=== PATIENT | female | born 1965 | race Caucasian/White ===

== ENCOUNTER 2018-06-28 10:30 | Observation (INO) ==
[2018-06-28 10:54] LABS: Basophils # (auto) 0.03 K/uL (0-0.2); Basophils % (auto) 0.6 %; Eosinophils # (auto) 0.42 K/uL (0-0.5); Eosinophils % (auto) 8.2 %; Hematocrit (blood only) 40.6 % (37-47); Hemoglobin 13.3 g/dL (12.0-16.0); Immature Granulocytes # (auto) 0.01 K/uL (0.00-0.02); Immature Granulocytes % (auto) 0.2 %; Lymphocytes # (auto) 1.96 K/uL (1.2-3.4); Lymphocytes % (auto) 38.1 %; Mean Corpuscular Hgb Conc 32.8 g/dL (32-36); Mean Corpuscular Volume 87.7 fL (80-100); Mean Platelet Volume 10.3 fL (7.4-10.4); Monocytes # (auto) 0.47 K/uL (0.11-0.59); Monocytes % (auto) 9.1 %; Neutrophils # (auto) 2.25 K/uL (1.4-6.5); Neutrophils % (auto) 43.8 %; Platelet Count 321 K/uL (130-400); RDW Coefficient of Variation 15.3 % (11.5-14.5); RDW Standard Deviation 49.2 fL (36.4-46.3); Red Blood Count 4.63 M/uL (4.2-5.4); White Blood Count 5.14 K/uL (4.8-10.8)
[2018-06-28] MEDS ORDERED: MAGNESIUM SULFATE / D5W 1 GM/100 ML BAG IV ONE (11:01)
[2018-06-28] MEDS ORDERED: OPTIRAY 320 125ml IV PRN (11:01)
[2018-06-28 11:06] LABS: Partial Thromboplastin Ratio 0.9; Partial Thromboplastin Time 25.1 Seconds (21.0-31.0); Prothrombin Time 10.3 Seconds (9.0-12.0)
--- NOTE | 2018-06-28 11:07 | CT Scan Report ---
CT head/brain wo con CT DOSE: HISTORY: Mental status change Stroke evaluation TECHNIQUE: Multiaxial CT images of the head were performed without the use of intravenous contrast. A dose lowering technique was utilized adhering to the principles of ALARA. Comparison: None. Findings: Sclerosis right mastoid air cells The calvarium and skull base are intact. The ventricles a nd sulci are within normal limits. There is no mass, hematoma, midline shift, or acute infarct. Impression: No acute intracranial abnormality. Sclerosis right mastoid air cells The above report was generated using voice recognition software. It may contain grammatical, syntax or spelling errors. Electronically signed by: Ino Pardo M.D. 06/28/2018 10:55 AM
[2018-06-28 11:09] LABS: Alanine Aminotransferase 22 U/L (12-78); Albumin Level 4.1 gm/dl (3.4-5.0); Aspartate Aminotransferase 15 U/L (15-37); BUN Creatinine Ratio 20.7 (10-20); Blood Urea Nitrogen 19 mg/dl (7-18); Calcium 9.2 mg/dl (8.5-10.1); Carbon Dioxide 24 mmol/L (21-32); Chloride 110 mmol/L (98-107); Est GFR (African American) 82.9; Est GFR (Non-African American) 71.5; Glucose 97 mg/dl (70-99); Magnesium 2.1 mg/dl (1.8-2.4); Potassium 3.9 mmol/L (3.5-5.1); Sodium 142 mmol/L (136-145)
--- NOTE | 2018-06-28 11:11 | CT Scan Report ---
CT angio neck with con HISTORY: No other compromise Pt c/o rt sided facial droop TECHNIQUE: Multiaxial CT angiography of the neck was performed IV contrast: 100 cc nonionic con trast All measurements were calculated based on NASCET criteria. Maximum intensity projection image s were also obtained. A dose lowering technique was utilized adhering to the principles of ALARA. COMPARISON STUDY: None. FINDINGS: The aortic arch and proximal great vessels are widely patent. There is no significant sten osis, occlusion, or dissection identified within the bilateral common carotid, internal carotid, or v ertebral arteries. IMPRESSION: No significant stenosis, occlusion, or dissection identified within the carotid or vertebral arteries . The above report was generated using voice recognition software. It may contain grammatical, syntax or spelling errors. Electronically signed by: Ino Pardo M.D. 06/28/2018 11:09 AM
[2018-06-28 11:14] LABS: Albumin Globulin Ratio 1.2 (0.9-2); Alkaline Phosphatase 74 U/L (45-117); Bilirubin,Total 0.4 mg/dl (0.2-1); Creatine Kinase MB 1.2 ng/ml (0.5-3.6); Globulin 3.5 gm/dl (2.5-4.0); Total Protein 7.6 gm/dl (6.4-8.2); Troponin I < 0.015 ng/ml (0-0.045)
--- NOTE | 2018-06-28 11:14 | CT Scan Report ---
CT angio head w con HISTORY: No logic compromise. Pt c/o Rt sided facial drrop TECHNIQUE: Multiaxial CT angiography of the head was performed IV contrast: 100 cc Maximum i ntensity projection images were also obtained. A dose lowering technique was utilized adhering to th e principles of ALARA. COMPARISON: None. FINDINGS: There is no mass, hematoma, midline shift, or acute infarct. Visualized intracranial improvement intern al carotid arteries, distal vertebral arteries, and basilar artery are widely patent. There is no sig nificant stenosis, occlusion, or aneurysm seen within the bilateral ACAs, MCAs, or line manager. IMPRESSION: No significant stenosis, occlusion, or aneurysm within the [place]. Normal study The above report was generated using voice recognition software. It may contain grammatical, syntax or spelling errors. Electronically signed by: Ino Pardo M.D. 06/28/2018 11:13 AM
[2018-06-28] MEDS ORDERED: ALTEPLASE For Stroke IV STA (11:17)
[2018-06-28] MEDS ORDERED: RECOMBINANT IV STA (11:17)
[2018-06-28] MEDS ORDERED: ALTEPLASE IV STA (11:17)
[2018-06-28] MEDS ORDERED: SODIUM CHLORIDE 0.9% 1000ML 1,000 ML IV ONE (11:27)
[2018-06-28] MEDS ORDERED: ALTEPLASE, RECOMBINANT 62 MG in EMPTY BAG 0 ML IV ONE (11:30)
[2018-06-28] MEDS ORDERED: CLOPIDOGREL BISULFATE 75 MG TAB PO ONE (11:41)
[2018-06-28] MEDS ORDERED: ASPIRIN CHEW 324 MG PO STA ×2 (11:41→12:02)
[2018-06-28] MEDS ORDERED: CLOPIDOGREL BISULFATE 300 MG TAB PO STA (12:02)
[2018-06-28] MEDS ORDERED: PHARMACIST DISCHARGE MED REC CONSULT PRN (12:29)
[2018-06-28] MEDS ORDERED: LORazepam 1 MG/2 ML VIAL IV STA (12:33)
[2018-06-28] MEDS ORDERED: ACETAMINOPHEN 325 MG TAB PO PRN (12:35)
--- NOTE | 2018-06-28 13:25 | Magnetic Resonance Report ---
MR angio head wo con HISTORY: Mental status change Dissection protocol TECHNIQUE: 3-D [id number] MRA of the brain was performed without contrast. COMPARISON STUDY: None. FINDINGS: Visualized intracranial internal carotid arteries, distal vertebral arteries, and basilar a rtery are widely patent. There is no significant stenosis, occlusion, or aneurysm seen within the ese ateral ACAs, MCAs, or manager solution. IMPRESSION: No significant stenosis, occlusion, or aneurysm within the [place]. The above report was generated using voice recognition software. It may contain grammatical, syntax or spelling errors. Electronically signed by: Ino Pardo M.D. 06/28/2018 1:23 PM
[2018-06-28] MEDS ORDERED: GADOBUTROL 7.5ML VIAL IV PRN (14:01)
--- NOTE | 2018-06-28 14:08 | Magnetic Resonance Report ---
MR angio neck wo/w con HISTORY: Mental status change Pt c/o TECHNIQUE: Multiaxial MRI angiography of the neck was performed IV contrast: 7.5 cc Gadavist A ll measurements were calculated based on NASCET criteria. Maximum intensity projection images were a lso obtained. A dose lowering technique was utilized adhering to the principles of ALARA. COMPARISON STUDY: CT angiogram of the same date FINDINGS: The aortic arch and proximal great vessels are widely patent. There is no significant sten osis, occlusion, or dissection identified within the bilateral common carotid, internal carotid, or v ertebral arteries. IMPRESSION: No significant stenosis, occlusion, or dissection identified within the carotid or vertebral arteries . Normal study. The above report was generated using voice recognition software. It may contain grammatical, syntax or spelling errors. Electronically signed by: Ino Pardo M.D. 06/28/2018 2:06 PM
--- NOTE | 2018-06-28 14:15 | Magnetic Resonance Report ---
MR brain wo/w con CLINICAL HISTORY: Pt c/o RT sided visual field deficit, COMPARISON STUDY: No previous studies for comparison. TECHNIQUE: Utilizing a 1.5 Kylie magnet and dedicated coil, multiplanar, multiecho imaging of the br ain was performed pre and postcontrast administration. IV administration of 8.5 mL of Gadavist contr ast was uneventful. FINDINGS: Diffusion-weighted images are negative for an acute ischemic event. Signal characteristics of the cerebellar as well as cerebral hemispheres are unremarkable. Ventricula r system is midline. Coronal FLAIR images show a focus of increased signal adjacent to the anterior h orn left lateral ventricle. This may be secondary to a focus of chronic small vessel change versus at ypical presentation of a demyelinating disorder. Several very faint subcortical foci of increased sig nal are identified overlying the occipital regions. IMPRESSION: 1. Focal cortical focus of increased signal adjacent to the anterior horn left lateral ventricle. 2. This potentially is secondary to an old focus of chronic small vessel change versus an atypical pr esentation of demyelinating disorder 3. No evidence for an acute ischemic insult. 4. No abnormal postcontrast enhancement. The above report was generated using voice recognition software. It may contain grammatical, syntax or spelling errors. Electronically signed by: Ino Pardo M.D. 06/28/2018 2:14 PM
[2018-06-28] MEDS ORDERED: D5NSS + 20MEQ KCL 20 MEQ/1,000 ML BAG IV SCH (15:00)
--- NOTE | 2018-06-28 15:13 | History & Physical Report ---
Date of Service June 28, 2018 Assessment & Plan (1) Transient cerebral ischemia: 53 y/o F Hx hypothyroidism, migraine headaches, possible demyelinating lesion which was discovered incidentally following head trauma, elevated JUAN FRANCISCO of unknown significance. The pt developed acute onset of R facial numbness or a pins and needles sensation in addition to field deficits in her R eye which she states encompassed the medial filed of the R eye, and dizziness. She had a very mild, short-lived headache which occurred after the symptoms and states that it did not feel like a migraine. Her symptoms persisted as she presented to the ER for evaluation. She was evaluated by teleneurology for an acute CVA, however, her symptoms gradually improved and subjectively resolved. A CTA was negative for acute findings. This was followed by an MRI/MRI which also proved negative aside form a chronic lesion which she had informed us of previously. As we do not have an explanation for her acute symptoms, she is assigned to telemetry for possible TIA. It is noted that although she had felt her symptoms had fully resolved, there remained a field deficit affecting the medial lower quadrant of the R eye. The pt incidentally reports that she may have suffered a concussion the prior week by hitting her head on a mail box. She did not have significant symptoms in the immediate aftermath. She also reports recent treatment with progesterone for perimenopausal irregularities. 1) Acute neurological deficits with persistent visual field deficit R eye. She is placed on ASA and was also provided with Plavix in the ER. She is pending an echo and neurology consultation. A statin has been ordered HS. She should likely be seen by ophthalmology as well. 2) Hypothyroidism - cont Synthroid 3) Demyelinating lesion and elevated JUAN FRANCISCO - she had an exhaustive workup in the past with both rheumatology and neurology in [place]. Nothing came of this and it is not clear if this is related to her current issue. I will check an ESR. Full code - SCDs Total time for this admit including review of labs, meds, imaging, records - discussion with pt and ER attending - 40 min Present on Admission?: Yes History of Present Illness Chief Complaint: R visual deficit, R facial numbness Primary Care Provider: NO PCP 53 y/o F Hx hypothyroidism, migraine headaches, possible demyelinating lesion which was discovered incidentally following head trauma, elevated JUAN FRANCISCO of unknown significance. The pt developed acute onset of R facial numbness or a pins and needles sensation in addition to field deficits in her R eye which she states encompassed the medial filed of the R eye, and dizziness. She had a very mild, short-lived headache which occurred after the symptoms and states that it did not feel like a migraine. Her symptoms persisted as she presented to the ER for evaluation. She was evaluated by teleneurology for an acute CVA, however, her symptoms gradually improved and subjectively resolved. A CTA was negative for acute findings. This was followed by an MRI/MRI which also proved negative aside form a chronic lesion which she had informed us of previously. As we do not have an explanation for her acute symptoms, she is assigned to telemetry for possible TIA. It is noted that although she had felt her symptoms had fully resolved, there remained a field deficit affecting the medial lower quadrant of the R eye. The pt incidentally reports that she may have suffered a concussion the prior week by hitting her head on a mail box. She did not have significant symptoms in the immediate aftermath. She also reports recent treatment with progesterone for perimenopausal irregularities. 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 Family: Father due to CA of unknown primary Allergies Allergy/AdvReac Type Severity Reaction Status Date / Time morphine Allergy Chest Pain Unverified 06/28/18 12:15 Sulfa (Sulfonamide AdvReac Rash Unverified 06/28/18 12:15 Antibiotics) Home Medications Home Medications Medication Instructions Recorded Confirmed Type levothyroxine [Synthroid] 50 mcg PO DAILY 06/28/18 06/28/18 History Past Med/Surg History Medical History Concussion (Acute) Migraines (Acute) Demyelinating lesion (Chronic) Surgical History H/O partial thyroidectomy Social History Preferred Language: Fijian Communication Ability: Effective 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 Beliefs That Will Affect Care: None marital status: Current Living Situation: Spouse current occupational status: employed Other Information That Helps Us Care for You: No Feels Safe at Home: Yes Safety Concerns: Feels Safe At This Time Smoking Status: Never smoker Hx Alcohol Use: No Hx Substance Use: No Review of Systems Gen: Denies fevers, night sweats, rigors, fatigue, malaise, weight loss/gain ENT: Denies congestion, throat pain, hearing loss Eyes: Denies acute visual changes CV: Denies CP, palpitations Pulmonary: Denies SOB, cough, wheezing GI: Denies N/V, diarrhea, constipation Neuro: Dizziness, numbness of R face, visual field deficits R eye Musculoskeletal: Denies joint pain, inflammation Endocrine: Denies polydipsia, polyuria Skin: Denies acute rashes or ulcers Physical Exam Vital Signs (Past 24 Hours): Last Vital Signs Temp 36.6 C 06/28/18 14:00 Pulse 74 06/28/18 14:00 Resp 16 06/28/18 14:00 BP 123/76 06/28/18 14:00 Pulse Ox 100 06/28/18 14:00 Physical Exam: General: AAO x 3, no distress ENT: No erythema or exudates, no thrush Eyes: JULIEN, EOMI Head and neck: Normocephalic, atraumatic, No JVD, neck is supple. Chest/heart: Nontender, S1,2, RRR, no murmurs, no gallops Lungs: CTAB, no wheezing or crackles Abdomen: Nontender, nondistended, BS+ Neuro: AAO x 3, speech is clear, no unilateral weakness or loss of sensation, coordination intact - there is a visual field deficit involving the medial lower quadrant of the R eye only Musculoskeletal: No joint inflammation, muscle tenderness, FROM Skin: No acute rashes or ulcers Extremities: No clubbing, cyanosis, edema Results & Data Diagnostic Findings MRI brain: 1. Focal cortical focus of increased signal adjacent to the anterior horn left lateral ventricle. 2. This potentially is secondary to an old focus of chronic small vessel change versus an atypical presentation of demyelinating disorder 3. No evidence for an acute ischemic insult. 4. No abnormal postcontrast enhancement. CTA head, neck - MRA head, neck - no abnormalities seen (1) Transient cerebral ischemia Transient cerebral ischemia type: unspecified Qualified Code(s): G45.9 - Transient cerebral ischemic attack, unspecified
[2018-06-28] MEDS ORDERED: ATORVASTATIN 40 MG TAB PO SCH (21:00)
[2018-06-29 06:14] LABS: Basophils # (auto) 0.02 K/uL (0-0.2); Basophils % (auto) 0.3 %; Eosinophils # (auto) 0.35 K/uL (0-0.5); Hematocrit (blood only) 37.9 % (37-47); Hemoglobin 12.4 g/dL (12.0-16.0); Immature Granulocytes # (auto) 0.01 K/uL (0.00-0.02); Immature Granulocytes % (auto) 0.2 %; Lymphocytes # (auto) 2.19 K/uL (1.2-3.4); Lymphocytes % (auto) 37.4 %; Mean Corpuscular Hgb Conc 32.7 g/dL (32-36); Mean Corpuscular Volume 86.3 fL (80-100); Monocytes # (auto) 0.49 K/uL (0.11-0.59); Monocytes % (auto) 8.4 %; Neutrophils # (auto) 2.79 K/uL (1.4-6.5); Neutrophils % (auto) 47.7 %; Platelet Count 280 K/uL (130-400); RDW Coefficient of Variation 15.5 % (11.5-14.5); RDW Standard Deviation 49.1 fL (36.4-46.3); Red Blood Count 4.39 M/uL (4.2-5.4); White Blood Count 5.85 K/uL (4.8-10.8)
[2018-06-29] MEDS ORDERED: LEVOTHYROXINE SODIUM 50 MCG TABLET PO SCH (06:30)
[2018-06-29 06:33] LABS: BUN Creatinine Ratio 17.4 (10-20); Calcium 8.3 mg/dl (8.5-10.1); Creatinine Clr Calc Pharmacy 77.8 ml/min; Est GFR (African American) 87.5; Est GFR (Non-African American) 75.5; Potassium 4.1 mmol/L (3.5-5.1)
[2018-06-29 07:29] VITALS: TEMP 97.5
[2018-06-29 07:29] LABS: Estimated Average Glucose 114 mg/dl; Hemoglobin A1C 5.6 % (4.5-5.6)
[2018-06-29] MEDS ORDERED: ASPIRIN 81 MG ECTAB PO SCH (09:00)
--- NOTE | 2018-06-29 09:47 | Neurology Consultation ---
Date of Consultation June 29, 2018 Assessment & Plan (1) Complicated migraine: This patient presented with what sounds like a visual scotoma with associated facial paresthesias, and low-grade headache. She has had this constellation of symptoms in the past and has been told that she probably has complicated migraine. I suspect that her current presentation is consistent with this diagnosis. Her symptoms are resolved at this time. She was found to have a PFO which is likely incidental. However, I would recommend that she continue with daily low-dose aspirin given the possibility that her current episode could have been consistent with a TIA, although less likely. She does not require migraine prophylaxis at this time. However, she may follow-up with her neurologist back home to discuss this issue further if warranted. (2) Demyelinating lesion: Chronic focus of demyelination adjacent to the anterior horn of the left lateral ventricle. This abnormality has reportedly been present since its discovery in 2005. She has a few smaller foci of nonspecific signal change within the occipital regions as well. It is possible that this patient may have multiple sclerosis. However, she reports having an extensive evaluation previously including an assessment with an MS specialist in [place] who was unable to give a specific diagnosis. If she does have MS, it may be a nonprogressive or benign subtype, but may explain her intermittent right trigeminal paresthesias and nonspecific vision disturbances. In any event, there is no evidence that she is having an actual "relapse" at this time and I would not recommend further immediate testing for demyelinating disease. Again, this patient may follow-up with her usual neurologist for further evaluation going forward, if necessary. At this point, given this patient's clinical improvement and stability I do not have any further neurological recommendations. I will be happy to see her for follow-up in clinic locally although she is not from the area and will likely schedule something with her regular neurologist. Please contact me if I may be of further assistance. History of Present Illness Reason for Consultation: TIA? 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 She reports an episode of sudden onset vision change to the right eye which occurred yesterday afternoon while at [employer]. She recalls having difficulty reading from a prayer book and seeing the [place] up at the alter. She believes the vision difficulty affected primarily the right eye although she is not completely certain. She also complains of associated paresthesias affecting the right side of the face as well as mild dizziness and a low-grade headache. The symptoms significantly improved by the time she was evaluated in the emergency department yesterday. The patient does admit that she has had similar symptoms in the past including intermittent, nonspecific difficulty with her vision, primarily difficulty with focusing. She does not have a known history of optic neuritis. 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 The patient also relays a history of migraine, sometimes with aura, and sometimes with complicated features. Past medical history also notable for the discovery of a nonspecific focus of demyelination within the left cerebral hemisphere, adjacent to the left lateral ventricle, and 2006, after a minor concussion. The patient indicates that she was evaluated by an MS specialist in [place] around that time and recalls having additional neuro imaging including spinal MRI and even a lumbar puncture. She indicates that it was felt that she most likely did not have multiple sclerosis and recalls that her lumbar puncture was negative. She has followed periodically with a different neurologist, Dr. Wright, for her intermittent trigeminal neuropathy. Currently, the patient reports that her symptoms have completely resolved. She denies headache, vision disturbance, paresthesias, or weakness at this time. Family history patient denies a family history of multiple sclerosis in any immediate family member. Family history otherwise noncontributory. 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 Beliefs That Will Affect Care: None marital status: Current Living Situation: Spouse current occupational status: employed Other Information That Helps Us Care for You: No Feels Safe at Home: Yes Safety Concerns: Feels Safe At This Time Smoking Status: Never smoker Hx Alcohol Use: No Hx Substance Use: No Review of Systems Constitutional: no fever and no chills Eyes: as per Subjective / HPI Ear, Nose, Mouth, Throat: no tinnitus and no hearing loss Respiratory: no cough and no dyspnea Cardiovascular: no chest pain and no palpitations Gastrointestinal: no nausea and no vomiting Genitourinary (Female): no dysuria and no urinary incontinence Musculoskeletal: no neck pain and no myalgia Integumentary: no rash and no lesions Neurologic: as per Subjective / HPI Psychiatric: no depression and no anxiety Hematologic / Lymphatic: no easy bleeding and no easy bruising Physical Exam Vital Signs (Past 24 Hours): Last Vital Signs Temp 36.4 C L 06/29/18 07:28 Pulse 71 06/29/18 07:28 Resp 16 06/29/18 07:28 BP 110/75 06/29/18 07:28 Pulse Ox 98 06/29/18 07:28 Physical Exam: The patient is a well-developed, well-nourished middle-aged female. She is alert and fully oriented. Recent and remote memory intact. Attention and concentration normal. Patient exhibits a normal spontaneous speech pattern as well as an age-appropriate fund of knowledge. Visual casillas full to confrontation. Visual acuity normal. Pupils equal round react to light and accommodation. Eye movements normal. There is no nystagmus. Facial sensation intact bilaterally. There is no facial droop or weakness although with casual observation there is an intermittent mimetic facial on the right. Hearing intact bilaterally. Palate elevates to midline. Shoulder shrug intact. Tongue protrudes to midline. Deep tendon reflexes are intact and symmetrical for the arms and legs. Plantar responses downgoing bilaterally. There is no dysdiadochokinesia or dysmetria finger to nose or heel to cavazos bilaterally. Ophthalmoscopic examination reveals normal-appearing optic disks and posterior segments. No papilledema or hemorrhages. Carotid pulses normal bilaterally, no bruits to auscultation. Gait and station normal. Patient exhibits normal mu scle strength and tone for all 4 limbs. There is no atrophy. No abnormal movements observed. Results & Data Laboratory Results Today's labs reviewed. WBC 5.85, hemoglobin 12.4, platelet count 280, sodium 141, potassium 4.1, BUN 15, creatinine 0.87, glucose 96, calcium 8.3, triglycerides 82, cholesterol 203, HDL 63 A sedimentation rate drawn yesterday was 13. Diagnostic Findings A CT of the head completed yesterday was negative for hemorrhage or acute process. Images and report reviewed. CT angiography of the head and neck was unremarkable. No evidence for stenosis, occlusion, or other vascular abnormality. An MRI of the brain completed yesterday revealed an area of increased T2/FLAIR signal adjacent to the anterior horn of the left lateral ventricle, with an adjacent focus extending into the basal ganglia area. There is no evidence for acute or subacute infarct. No abnormal postcontrast enhancement. Also noted were several faint subcortical foci of increased signal within the occipital regions bilaterally. Images and report reviewed. MR angiography of the head and neck were unremarkable. An electrocardiogram revealed normal sinus rhythm, 70 bpm An echocardiogram revealed normal left ventricular systolic function. A PFO is suspected with injection of agitated saline.
[2018-06-29 11:20] VITALS: BP 118/73; O2SAT 97
[2018-06-29] MEDS ORDERED: STROKE PATIENT DISCHARGE STA (11:29)
[2018-06-29 13:03] VITALS: PULSE 56
--- NOTE | 2018-06-29 13:30 | Discharge Summary ---
Date of Service June 29, 2018 Admission HPI Per Admitting Provider 53 y/o F Hx hypothyroidism, migraine headaches, possible demyelinating lesion which was discovered incidentally following head trauma, elevated JUAN FRANCISCO of unknown significance. The pt developed acute onset of R facial numbness or a pins and needles sensation in addition to field deficits in her R eye which she states encompassed the medial filed of the R eye, and dizziness. She had a very mild, short-lived headache which occurred after the symptoms and states that it did not feel like a migraine. Her symptoms persisted as she presented to the ER for evaluation. She was evaluated by teleneurology for an acute CVA, however, her symptoms gradually improved and subjectively resolved. A CTA was negative for acute findings. This was followed by an MRI/MRI which also proved negative aside form a chronic lesion which she had informed us of previously. As we do not have an explanation for her acute symptoms, she is assigned to telemetry for possible TIA. It is noted that although she had felt her symptoms had fully resolved, there remained a field deficit affecting the medial lower quadrant of the R eye. The pt incidentally reports that she may have suffered a concussion the prior week by hitting her head on a mail box. She did not have significant symptoms in the immediate aftermath. She also reports recent treatment with progesterone for perimenopausal irregularities. 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 Family: Father due to CA of unknown primary Principal Diagnosis Likely complicated migraine Discharge Exam Constitutional WD/WN, vitals as above Eyes EOM intact bilaterally; no conjunctival abnormality ENMT external ear and nose normal, oropharynx normal Neck trachea midline, no thyromegaly normal visual inspection Respiratory normal respiratory effort, lungs clear to auscultation no respiratory distress Cardiovascular RRR, no murmur, no edema Gastrointestinal (Abdomen) Inspection/Auscultation: abdomen normal to inspection; abdomen not distended Musculoskeletal no cyanosis or clubbing, extremities motor strength 5/5 Skin no rashes, warm and dry Neurologic moves all extremities and awake Psychiatric Orientation: alert, oriented to person and cooperative Discharge Data Allergies Allergy/AdvReac Type Severity Reaction Status Date / Time morphine Allergy Chest Pain Unverified 06/28/18 12:15 Sulfa (Sulfonamide AdvReac Rash Unverified 06/28/18 12:15 Antibiotics) Consultations 06/28/18 12:04 ED Decision to Admit Stat 06/28/18 12:30 Consult Case Management - Discharge Planning Routine 06/28/18 14:55 Consult Neurology Routine 06/28/18 15:13 Consult Ophthalmology Routine Ordered Studies 06/28/18 10:43 CT head/brain wo con Stat 06/28/18 10:44 CT angio head w con Stat CT angio neck with con Stat 06/28/18 12:02 MR angio head wo con Stat MR brain wo/w con Stat 06/28/18 12:45 MR angio neck wo/w con Stat 06/29/18 08:29 MR brain wo con Routine Hospital Course (1) Complicated migraine: 1) Acute neurological deficits with persistent visual field deficit R eye - MRI brain showed known, chronic area of demyelination. MRAs were normal. Seen by neurology with thought this was likely complicated migraine vs. her undifferentiated demyelinating disease. She can continue her baby ASA per neurology, but no further work-up. Outpatient follow up. 2) Hypothyroidism - cont Synthroid 3) Demyelinating lesion and elevated JUAN FRANCISCO - she had an exhaustive workup in the past with both rheumatology and neurology in [place]. Follow up outpatient. Total Time Total Time Spent Total Time Spent (In Minutes): 30 Discharge Plan Discharge Items Patient Disposition: Home - Self-Care Reason For Visit: TIA Discharge Diagnosis: Complicated migraine vs. symptoms from undifferentiated demyelinating disease Discharge Goals: Diagnostic testing Activity: Resume your previous activity Non-emergency contact: Primary Care Provider and Neurologist Call non-emergency contact if: your symptoms worsen, your pain is not controlled and your temperature is above 100.5 Follow-up/Referrals: PCP,NO [Primary Care Provider] - Diet: Regular Addtl Provider Instructions: Brooke NewtonWindyHillaryyoly, You were admitted for visual changes and facial numbness. We were concerned about a stroke/TIA; however, your MRI and MRA all look good, apart from the one area of demyelination that you already know about and appears stable from prior studies. Dr. Thornton (neurology) saw you and feels this may be a complicated migraine vs. aspect of the undifferentiated demyelinating syndrome that you may have. Dr. Thornton did recommend you continue a daily baby aspirin in the small chance that this event was ischemic in nature. Please follow up with your normal neurologist in [place] for any further testing that he/she feels is warranted. Please return to the hospital if you have similar symptoms that don't resolve. Have a good day and a safe trip back to [place]! Prescriptions: Continued levothyroxine [Synthroid] 50 mcg tablet 50 mcg PO DAILY RF: 0 Stand-Alone Forms: [facility] Discharge Orders: Discharge Order (Routine); Ordered 06/29/18 Ordered By: Alen Grimm Admission Data Admit Date/Time: 06/28/18 12:44 Attending Provider: Alen Grimm Admit Provider: Travis Perkins Primary Care Provider: PCP,NO Other Providers: Justin Thornton ; Cruzito Hawkins ; Alen Grimm Service: Telemetry Other Interventions: Discharge Summary Assessment (RN) Last Done: 06/29/18 13:00
--- NOTE | 2018-06-30 19:45 | Emergency Department Note ---
Entered by Colleen Marroquin acting as a scribe for History of Present Illness General Chief complaint: Stroke Alert Stated complaint: R sided facial numbness Time Seen by Provider: 06/28/18 10:36 Source: patient History of Present Illness Onset (ago): hour(s) (this morning) Location: head Pain Consistency: + other (episode) Quality: + other (right-sided weakness) Associated symptoms: + other (double vision, vertigo, dizziness) The patient is a 53 year old female who presents to the Emergency Room with complaints of an episode of right-sided weakness that started around 0900 this morning. The patient reports that she was in [place] and that 10 minutes in she noticed that she had right-sided visual defects that resembled a blind spot. She states she noticed slight double vision. She notes she then experienced extreme dizziness and vertigo. The patient reports that she has a history of demyelinated lesions that were found incidentally on a CT scan several years ago. She states that the lesions are static and were unchanged in a 2017 MRI completed due to a severe concussion. She reports that she has a history of occasional migraines but has not had one in some time. She notes that she would sometimes notice a similar blind spot prior to these episodes but states that this is not normal for her. The patient reports that she had a cinda thyroidectomy 1.5 years ago and has hyperthyroidism as a result. She states that she just finished a course of progesterone to treat her hyperthyroidism. She notes that she has static paresthesia that is worsening slightly and that she has a strange feeling on the back of her tongue. Home Medications Home Medications Medication Instructions Recorded Confirmed Type levothyroxine [Synthroid] 50 mcg PO DAILY 06/28/18 06/28/18 History Allergies Allergy/AdvReac Type Severity Reaction Status Date / Time morphine Allergy Chest Pain Unverified 06/28/18 12:15 Sulfa (Sulfonamide AdvReac Rash Unverified 06/28/18 12:15 Antibiotics) Past Med/Surg History Medical History Concussion (Acute) Migraines (Acute) Demyelinating lesion (Chronic) Surgical History H/O partial thyroidectomy Social History Preferred Language: Bengali Beliefs That Will Affect Care: None marital status: Current Living Situation: Spouse current occupational status: employed Other Information That Helps Us Care for You: No Feels Safe at Home: Yes Safety Concerns: Feels Safe At This Time Smoking Status: Never smoker Hx Alcohol Use: No Hx Substance Use: No Review of Systems See HPI for pertinent positives & negatives. and A total of 10 systems reviewed and were otherwise negative Physical Exam Vital Signs Vital Signs - 24 hr 06/28/18 10:36 06/28/18 10:38 06/28/18 10:40 Temperature Temperature Source Sepsis Recent Fever Within 48 Hours Sepsis New/Unexplained Change in Mental Status Sepsis Action Taken by Nursing Pulse Rate 85 75 85 Pulse Rate from SpO2 Sensor 77 Respiratory Rate 20 19 Respiratory Effort / Characteristics Respiratory Depth Respiratory Pattern Blood Pressure 139/71 Blood Pressure Mean 93 Blood Pressure Position Pulse Oximetry 98 Oxygen Delivery Method 06/28/18 10:45 06/28/18 10:58 06/28/18 10:59 Temperature 97.7 F Temperature Source Oral Sepsis Recent Fever Within 48 Hours No Sepsis New/Unexplained Change in Mental Status No Sepsis Action Taken by Nursing No Action Required Pulse Rate 73 79 Pulse Rate from SpO2 Sensor Respiratory Rate 17 Respiratory Effort / Characteristics Non-Labored Respiratory Depth Normal Respiratory Pattern Regular Blood Pressure 131/60 131/60 Blood Pressure Mean 83 83 Blood Pressure Position Sitting Pulse Oximetry 96 Oxygen Delivery Method Room Air 06/28/18 11:00 06/28/18 11:01 06/28/18 11:10 Temperature Temperature Source Sepsis Recent Fever Within 48 Hours Sepsis New/Unexplained Change in Mental Status Sepsis Action Taken by Nursing Pulse Rate 76 75 70 Pulse Rate from SpO2 Sensor 77 76 72 Respiratory Rate 13 17 12 Respiratory Effort / Characteristics Respiratory Depth Respiratory Pattern Blood Pressure 125/79 Blood Pressure Mean 94 Blood Pressure Position Pulse Oximetry 100 98 99 Oxygen Delivery Method 06/28/18 11:16 06/28/18 11:20 06/28/18 11:30 Temperature Temperature Source Sepsis Recent Fever Within 48 Hours Sepsis New/Unexplained Change in Mental Status Sepsis Action Taken by Nursing Pulse Rate 73 87 74 Pulse Rate from SpO2 Sensor 73 87 74 Respiratory Rate 15 14 19 Respiratory Effort / Characteristics Respiratory Depth Respiratory Pattern Blood Pressure 142/83 H Blood Pressure Mean 102 Blood Pressure Position Pulse Oximetry 96 98 97 Oxygen Delivery Method 06/28/18 11:31 06/28/18 11:40 06/28/18 11:46 Temperature Temperature Source Sepsis Recent Fever Within 48 Hours Sepsis New/Unexplained Change in Mental Status Sepsis Action Taken by Nursing Pulse Rate 80 77 69 Pulse Rate from SpO2 Sensor 79 76 64 Respiratory Rate 13 17 Respiratory Effort / Characteristics Respiratory Depth Respiratory Pattern Blood Pressure 138/89 139/82 Blood Pressure Mean 105 101 Blood Pressure Position Pulse Oximetry 99 95 98 Oxygen Delivery Method 06/28/18 11:50 06/28/18 11:51 06/28/18 12:00 Temperature Temperature Source Sepsis Recent Fever Within 48 Hours Sepsis New/Unexplained Change in Mental Status Sepsis Action Taken by Nursing Pulse Rate 69 83 72 Pulse Rate from SpO2 Sensor 79 76 Respiratory Rate 16 16 20 Respiratory Effort / Characteristics Respiratory Depth Respiratory Pattern Blood Pressure 139/82 Blood Pressure Mean 101 Blood Pressure Position Pulse Oximetry 92 97 Oxygen Delivery Method 06/28/18 12:01 06/28/18 12:10 06/28/18 12:20 Temperature Temperature Source Sepsis Recent Fever Within 48 Hours Sepsis New/Unexplained Change in Mental Status Sepsis Action Taken by Nursing Pulse Rate 83 80 59 L Pulse Rate from SpO2 Sensor 83 77 56 L Respiratory Rate 13 16 Respiratory Effort / Characteristics Respiratory Depth Respiratory Pattern Blood Pressure 142/75 H Blood Pressure Mean 97 Blood Pressure Position Pulse Oximetry 99 100 Oxygen Delivery Method 06/28/18 12:30 06/28/18 12:31 06/28/18 13:23 Temperature Temperature Source Sepsis Recent Fever Within 48 Hours Sepsis New/Unexplained Change in Mental Status Sepsis Action Taken by Nursing Pulse Rate 54 L 54 L Pulse Rate from SpO2 Sensor 53 L Respiratory Rate 15 10 L Respiratory Effort / Characteristics Respiratory Depth Respiratory Pattern Blood Pressure 141/80 H Blood Pressure Mean 100 Blood Pressure Position Pulse Oximetry 98 Oxygen Delivery Method Room Air GENERAL: Patient is a healthy-appearing well-nourished HEAD: Normocephalic atraumatic EYES: Ocular movements intact pupils equal and react to light OROPHARYNX mucous membranes are moist no exudates present no erythema or edema present NECK: Supple no nuchal rigidity CHEST: Good equal expansion LUNGS: Clear and equal to auscultation CARDIAC: Normal S1 and S2 ABDOMEN: Soft nontender no guarding BACK: No CVA tenderness EXTREMITIES: No pain upon palpation normal muscle strength in all groups no clubbing cyanosis or edema NEURO: Patient is following commands is answering questions appropriately. Alert and oriented x3 Cranial Nerves 2-12 grossly intact. Slight right-sided facial droop. Course 1038: The patient was evaluated in room C4, and a complete history and physical examination were performed. 1040: The patient was moved to A01 for a stroke evalution. 1111: I discussed the patient's case with Dr. Shaikh [facility] [place] [facility], who recommended possible treatment and will evaluate the patient further. 1203: I updated the patient on her current lab and imaging results. 1224: I discussed the patient's case with Dr. Church [facility] [place], who will evaluate the patient for further evaluation and management. 1230: I discussed today's findings with the patient. She verbalized agreement of the treatment plan. She will be evaluated for further management and care. Consultations Consultation #1: I discussed the patient's case with Dr. Shaikh [facility] [place] [facility], who recommended possible treatment and will evaluate the patient further. Time: 11:11 Consultation #2: I discussed the patient's case with Dr. Perkins [facility] [place], who will evaluate the patient for further evaluation and management. Time: 12:24 Administered Medications Discontinued Medications Alteplase, Recombinant (Activase For Stroke) 1 ea IV NOW STA; Protocol Stop: 06/28/18 11:18 Last Admin: 06/28/18 15:58 Dose: Not Given Documented by: [id number] Aspirin (Aspirin) 324 mg PO NOW STA Stop: 06/28/18 11:42 Last Admin: 06/28/18 11:51 Dose: Not Given Documented by: [id number] Aspirin (Aspirin) 81 mg PO NOW STA Stop: 06/28/18 12:03 Last Admin: 06/28/18 12:09 Dose: 81 mg Documented by: [id number] Aspirin (Ecotrin Ectab) 81 mg PO [facility] Stop: 07/29/18 08:59 Last Admin: 06/29/18 10:20 Dose: 81 mg Documented by: [id number] Atorvastatin Calcium (Lipitor) 40 mg PO [facility] Stop: 07/28/18 20:59 Last Admin: 06/28/18 19:35 Dose: 40 mg Documented by: [id number] Clopidogrel Bisulfate (Plavix) 75 mg PO NOW ONE Stop: 06/28/18 11:42 Last Admin: 06/28/18 11:51 Dose: Not Given Documented by: [id number] Clopidogrel Bisulfate (Plavix) 300 mg PO NOW STA Stop: 06/28/18 12:03 Last Admin: 06/28/18 12:09 Dose: 300 mg Documented by: [id number] Gadobutrol (Gadavist 7.5ml) 7.5 ml IV ONCE PRN PRN Reason: Interaction Checking Stop: 07/02/18 14:00 Last Admin: 06/28/18 14:01 Dose: 7.5 ml Documented by: [id number] Magnesium Sulfate/Dextrose (Magnesium Sulfate / D5w) 1 gm in 100 mls @ 100 mls/hr IV ONE ONE Stop: 06/28/18 12:00 Last Infusion: 06/28/18 13:01 Dose: 0 mls/hr Documented by: [id number] Admin: 06/28/18 11:18 Dose: 100 mls/hr Documented by: [id number] Alteplase, Recombinant 62 mg/ (EMPTY BAG) 62 mls @ 62 mls/hr IV 1130 ONE Stop: 06/28/18 12:29 Last Admin: 06/28/18 15:40 Dose: Not Given Documented by: [id number] Alteplase, Recombinant 7 mg/ (Syringe) 7 mls @ 7 mls/min IV ONCE STA Stop: 06/28/18 11:18 Last Admin: 06/28/18 15:40 Dose: Not Given Documented by: [id number] Sodium Chloride (Nss 1000ml) 1,000 mls @ 999 mls/hr IV .Q1H1M ONE Stop: 06/28/18 12:27 Last Infusion: 06/28/18 12:15 Dose: 0 mls/hr Documented by: [id number] Admin: 06/28/18 11:37 Dose: 999 mls/hr Documented by: [id number] Lorazepam (Ativan) 1 mg in 2 mls @ 2 mls/min IV NOW STA Stop: 06/28/18 12:34 Last Admin: 06/28/18 12:42 Dose: 1 mls/min Documented by: [id number] Potassium Chloride/Dextrose/Sod Cl (D5nss + 20meq Kcl) 20 meq in 1,000 mls @ 80 mls/hr IV .[id number] BEST Stop: 06/29/18 03:29 Last Infusion: 06/29/18 04:13 Dose: 0 mls/hr Documented by: [id number] Admin: 06/28/18 15:43 Dose: 80 mls/hr Documented by: [id number] Ioversol (Optiray 320 125ml) 118 ml IV ONCE PRN PRN Reason: Interaction Checking Stop: 07/02/18 11:00 Last Admin: 06/28/18 11:02 Dose: 118 ml Documented by: [id number] Levothyroxine Sodium (Synthroid) 50 mcg PO DAILYBB BEST Stop: 07/29/18 06:29 Last Admin: 06/29/18 06:00 Dose: 50 mcg Documented by: [id number] Miscellaneous Information (Discharge, Stroke Patient) 1 ea N/A NOW STA Stop: 06/29/18 11:30 Last Admin: 06/29/18 13:28 Dose: Not Given Documented by: [id number] Medical Decision Making Differential Diagnosis Differential diagnosis: Etiologies such as metabolic, infection, hypo/hyperglycemia, electrolyte abnormalities, cardiac sources, intracerebral event, toxicologic, neurologic, as well as others were entertained. Medical Records Attestation: I reviewed the patient's medical records. Home Medications Current Medication List: was personally reviewed by me Laboratory Data Attestation: I reviewed the patient's lab results. Result diagrams: 06/29/18 05:56 06/29/18 05:56 Lab Results 06/28/18 06/28/18 06/28/18 Range/Units 10:30 10:30 10:30 WBC 5.14 (4.8-10.8) K/uL RBC 4.63 (4.2-5.4) M/uL Hgb 13.3 (12.0-16.0) g/dL Hct 40.6 (37-47) % MCV 87.7 (80-100) fL MCH 28.7 (25-34) pg MCHC 32.8 (32-36) g/dL RDW Std Deviation 49.2 H (36.4-46.3) fL RDW Coeff of Magui 15.3 H (11.5-14.5) % Plt Count 321 (130-400) K/uL MPV 10.3 (7.4-10.4) fL Immature Gran % (Auto) 0.2 % Neut % (Auto) 43.8 % Lymph % (Auto) 38.1 % Antelope % (Auto) 9.1 % Eos % (Auto) 8.2 % Baso % (Auto) 0.6 % Immature Gran # (Auto) 0.01 (0.00-0.02) K/uL Neut # (Auto) 2.25 (1.4-6.5) K/uL Lymph # (Auto) 1.96 (1.2-3.4) K/uL Antelope # (Auto) 0.47 (0.11-0.59) K/uL Eos # (Auto) 0.42 (0-0.5) K/uL Baso # (Auto) 0.03 (0-0.2) K/uL ESR (0-21) mm/hr PT 10.3 (9.0-12.0) Seconds INR 1.0 (0.9-1.1) APTT 25.1 (21.0-31.0) Seconds PTT Ratio 0.9 Sodium 142 (136-145) mmol/L Potassium 3.9 (3.5-5.1) mmol/L Chloride 110 H (98-107) mmol/L Carbon Dioxide 24 (21-32) mmol/L Anion Gap 8.0 (3-11) BUN 19 H (7-18) mg/dl Creatinine 0.91 (0.6-1.2) mg/dl Est Cr Clr Drug Dosing Not Reportable Est GFR ( Amer) 82.9 Est GFR (Non-Af Amer) 71.5 BUN/Creatinine Ratio 20.7 H (10-20) Glucose 97 (70-99) mg/dl POC Glucose (70-99) Estimat Average Glucose mg/dl Hemoglobin A1c (4.5-5.6) % Calcium 9.2 (8.5-10.1) mg/dl Magnesium 2.1 (1.8-2.4) mg/dl Total Bilirubin 0.4 (0.2-1) mg/dl AST 15 (15-37) U/L ALT 22 (12-78) U/L Alkaline Phosphatase 74 (45-117) U/L CK-MB (CK-2) 1.2 (0.5-3.6) ng/ml CK/CKMB % Calc Not Reportable Troponin I < 0.015 (0-0.045) ng/ml Total Protein 7.6 (6.4-8.2) gm/dl Albumin 4.1 (3.4-5.0) gm/dl Globulin 3.5 (2.5-4.0) gm/dl Albumin/Globulin Ratio 1.2 (0.9-2) Triglycerides (0-150) mg/dl Cholesterol (0-200) mg/dl LDL Cholesterol, Calc mg/dl VLDL Cholesterol, Calc mg/dl HDL Cholesterol mg/dl Cholesterol/HDL Ratio 06/28/18 06/28/18 06/28/18 Range/Units 10:30 10:30 10:30 WBC (4.8-10.8) K/uL RBC (4.2-5.4) M/uL Hgb (12.0-16.0) g/dL Hct (37-47) % MCV (80-100) fL MCH (25-34) pg MCHC (32-36) g/dL RDW Std Deviation (36.4-46.3) fL RDW Coeff of Magui (11.5-14.5) % Plt Count (130-400) K/uL MPV (7.4-10.4) fL Immature Gran % (Auto) % Neut % (Auto) % Lymph % (Auto) % Antelope % (Auto) % Eos % (Auto) % Baso % (Auto) % Immature Gran # (Auto) (0.00-0.02) K/uL Neut # (Auto) (1.4-6.5) K/uL Lymph # (Auto) (1.2-3.4) K/uL Antelope # (Auto) (0.11-0.59) K/uL Eos # (Auto) (0-0.5) K/uL Baso # (Auto) (0-0.2) K/uL ESR 13 (0-21) mm/hr PT (9.0-12.0) Seconds INR (0.9-1.1) APTT (21.0-31.0) Seconds PTT Ratio Sodium (136-145) mmol/L Potassium (3.5-5.1) mmol/L Chloride (98-107) mmol/L Carbon Dioxide (21-32) mmol/L Anion Gap (3-11) BUN (7-18) mg/dl Creatinine (0.6-1.2) mg/dl Est Cr Clr Drug Dosing Est GFR ( Amer) Est GFR (Non-Af Amer) BUN/Creatinine Ratio (10-20) Glucose (70-99) mg/dl POC Glucose (70-99) Estimat Average Glucose 114 mg/dl Hemoglobin A1c 5.6 (4.5-5.6) % Calcium (8.5-10.1) mg/dl Magnesium (1.8-2.4) mg/dl Total Bilirubin (0.2-1) mg/dl AST (15-37) U/L ALT (12-78) U/L Alkaline Phosphatase (45-117) U/L CK-MB (CK-2) Cancelled (0.5-3.6) ng/ml CK/CKMB % Calc Cancelled Troponin I (0-0.045) ng/ml Total Protein (6.4-8.2) gm/dl Albumin (3.4-5.0) gm/dl Globulin (2.5-4.0) gm/dl Albumin/Globulin Ratio (0.9-2) Triglycerides (0-150) mg/dl Cholesterol (0-200) mg/dl LDL Cholesterol, Calc mg/dl VLDL Cholesterol, Calc mg/dl HDL Cholesterol mg/dl Cholesterol/HDL Ratio 06/28/18 06/29/18 06/29/18 Range/Units 11:12 05:56 05:56 WBC 5.85 (4.8-10.8) K/uL RBC 4.39 (4.2-5.4) M/uL Hgb 12.4 (12.0-16.0) g/dL Hct 37.9 (37-47) % MCV 86.3 (80-100) fL MCH 28.2 (25-34) pg MCHC 32.7 (32-36) g/dL RDW Std Deviation 49.1 H (36.4-46.3) fL RDW Coeff of Magui 15.5 H (11.5-14.5) % Plt Count 280 (130-400) K/uL MPV 10.0 (7.4-10.4) fL Immature Gran % (Auto) 0.2 % Neut % (Auto) 47.7 % Lymph % (Auto) 37.4 % Antelope % (Auto) 8.4 % Eos % (Auto) 6.0 % Baso % (Auto) 0.3 % Immature Gran # (Auto) 0.01 (0.00-0.02) K/uL Neut # (Auto) 2.79 (1.4-6.5) K/uL Lymph # (Auto) 2.19 (1.2-3.4) K/uL Antelope # (Auto) 0.49 (0.11-0.59) K/uL Eos # (Auto) 0.35 (0-0.5) K/uL Baso # (Auto) 0.02 (0-0.2) K/uL ESR (0-21) mm/hr PT (9.0-12.0) Seconds INR (0.9-1.1) APTT (21.0-31.0) Seconds PTT Ratio Sodium 141 (136-145) mmol/L Potassium 4.1 (3.5-5.1) mmol/L Chloride 111 H (98-107) mmol/L Carbon Dioxide 25 (21-32) mmol/L Anion Gap 5.0 (3-11) BUN 15 (7-18) mg/dl Creatinine 0.87 (0.6-1.2) mg/dl Est Cr Clr Drug Dosing 77.8 Est GFR ( Amer) 87.5 Est GFR (Non-Af Amer) 75.5 BUN/Creatinine Ratio 17.4 (10-20) Glucose 96 (70-99) mg/dl POC Glucose 86 (70-99) Estimat Average Glucose mg/dl Hemoglobin A1c (4.5-5.6) % Calcium 8.3 L (8.5-10.1) mg/dl Magnesium (1.8-2.4) mg/dl Total Bilirubin (0.2-1) mg/dl AST (15-37) U/L ALT (12-78) U/L Alkaline Phosphatase (45-117) U/L CK-MB (CK-2) (0.5-3.6) ng/ml CK/CKMB % Calc Troponin I (0-0.045) ng/ml Total Protein (6.4-8.2) gm/dl Albumin (3.4-5.0) gm/dl Globulin (2.5-4.0) gm/dl Albumin/Globulin Ratio (0.9-2) Triglycerides 82 (0-150) mg/dl Cholesterol 203 H (0-200) mg/dl LDL Cholesterol, Calc 124 mg/dl VLDL Cholesterol, Calc 16 mg/dl HDL Cholesterol 63 mg/dl Cholesterol/HDL Ratio 3 Imaging Data Radiologist's Impression: Radiology results as stated below per my review and the radiologist's interpretation: CT angio neck with con HISTORY: No other compromise Pt c/o rt sided facial droop TECHNIQUE: Multiaxial CT angiography of the neck was performed IV contrast: 100 cc nonionic contrast All measurements were calculated based on NASCET criteria. Maximum intensity projection images were also obtained. A dose lowering technique was utilized adhering to the principles of ALARA. COMPARISON STUDY: None. FINDINGS: The aortic arch and proximal great vessels are widely patent. There is no significant stenosis, occlusion, or dissection identified within the bilateral common carotid, internal carotid, or vertebral arteries. IMPRESSION: No significant stenosis, occlusion, or dissection identified within the carotid or vertebral arteries. The above report was generated using voice recognition software. It may contain grammatical, syntax or spelling errors. Electronically signed by: Ino Pardo M.D. 06/28/2018 11:[address] angio head w con HISTORY: No logic compromise. Pt c/o Rt sided facial drrop TECHNIQUE: Multiaxial CT angiography of the head was performed IV contrast: 100 cc Maximum intensity projection images were also obtained. A dose lowering technique was utilized adhering to the principles of ALARA. COMPARISON: None. FINDINGS: There is no mass, hematoma, midline shift, or acute infarct. Visualized intracranial internal carotid arteries, distal vertebral arteries, and basilar artery are widely patent. There is no significant stenosis, occlusion, or aneurysm seen within the bilateral ACAs, MCAs, or rails developer. IMPRESSION: No significant stenosis, occlusion, or aneurysm within the [place]. Normal study The above report was generated using voice recognition software. It may contain grammatical, syntax or spelling errors. Electronically signed by: Ino Pardo M.D. 06/28/2018 11:[address] head/brain wo con CT DOSE: HISTORY: Mental status change Stroke evaluation TECHNIQUE: Multiaxial CT images of the head were performed without the use of intravenous contrast. A dose lowering technique was utilized adhering to the principles of ALARA. Comparison: None. Findings: Sclerosis right mastoid air cells The calvarium and skull base are intact. The ventricles and sulci are within normal limits. There is no mass, hematoma, midline shift, or acute infarct. Impression: No acute intracranial abnormality. Sclerosis right mastoid air cells The above report was generated using voice recognition software. It may contain grammatical, syntax or spelling errors. Electronically signed by: Ino Pardo M.D. 06/28/2018 10:55 AM ECG Data Attestation: I personally reviewed and interpreted this ECG as follows: Indication: altered mental status Rate (beats per minute): 70 Rhythm: normal sinus Findings: no PAC, no PVC, no ST depression, no ST elevation, no acute ischemic change and no ectopy Blood Pressure Blood Pressure Findings: Normal blood pressure MDM Narrative This is a 53-year-old female who presents emergency department complaining of dizziness loss of vision as well as a right sided paresthesia. Patient reports she has not had this previously. Due to the acute onset of symptoms the patient was immediately sent for a CAT scan of the head and a stroke alert was initiated. She was also sent for CTA of the head and neck. Both of these did not show any acute process. I did discuss the case with the on-call neurologist. She did examine the patient and again using shared medical decision making the decision was not made not to give the patient TPA. We will however load the patient with Plavix and aspirin. She was also given a normal saline bolus as well as magnesium. Stroke neurologist requested an MRI of the head and neck because the patient recently had a trauma to the neck and wishes to rule out a dissection. She was admitted to the medicine service. Patient and family were in agreement with the treatment plan. Impression & Plan Complicated migraine Discharge Plan Visit Data *Final* Discharge Date/Time: 06/28/18 13:23 Chief Complaint: Stroke Alert Stated Complaint: R sided facial numbness ED Provider: Quinton Snowden Discharge Problem: Complicated migraine Patient Disposition: Admitted As Inpatient Discharge Instructions Interventions: ED Discharge Assessment Last Done: 06/28/18 13:23 The scribe's documentation has been prepared under my direction and personally reviewed by me in its entirety. I confirm that the note above accurately reflects all work, treatment, procedures, and medical decision making performed by me.
== END 2018-06-29 13:31 | disposition home or self-care (01) ==
LOC: 2E 10:30 → ED 10:30 → SUATTDRO 12:44 → 2E 13:23